=== PATIENT | male | born 1980 | race Caucasian/White ===

== ENCOUNTER 2018-09-09 12:01 | Emergency (ER) | payer SELFPAY ==
[2018-09-09] MEDS ORDERED: SOLUMEDROL 125 MG/2 ML 125 MG/2 ML PDS IM ONE (13:30)
[2018-09-09] MEDS ORDERED: SOLUMEDROL 125 MG/2 ML 125 MG/2 ML PDS ONE (13:36)
[2018-09-09 13:46] VITALS: BP 158/104; PULSE 108; RESP 20; TEMP 97.7; O2SAT 96
== END 2018-09-09 13:58 | disposition home or self-care (01) | DRG 607 ==
LOC: ED 12:01
DX: L23.0 Allergic contact dermatitis due to metals (principal)
CPT/HCPCS: 96372; 99282; J2930